=== PATIENT | female | born 1940 | race African-American/Black ===

== ENCOUNTER 2023-01-01 03:05 | Emergency (ER) | payer SELFPAY ==
[~2023-01-01] VITALS: Ht 177.8 cm; Wt 91.2 kg
[2023-01-01] MEDS ORDERED: TENECTEPLASE 50MG/VIAL IV ONE (03:45)
[2023-01-01 03:56] LABS: EOSINOPHILS % 1.7 % (0.0-5.0); HEMATOCRIT. 44.6 % (36.0-48.0); HEMOGLOBIN. 14.6 g/dL (12.0-16.0); LYMPHOCYTES % 23.2 % (20.0-50.0); MEAN CORPUSCULAR HEMOGLOBIN 27.6 pg (28.0-32.0); MEAN PLATELET VOLUME 8.7 fl (7.4-10.4); MONOCYTES % 8.5 % (2.0-8.0); NEUTROPHILS % 65.6 % (40.0-76.0); PLATELET 254 x1000/uL (130-400); RED BLOOD CELL COUNT 5.31 mill/uL (4.2-5.4); RED CELL DISTRIBUTION WIDTH 17.7 % (11.6-14.6)
[2023-01-01] MEDS ORDERED: TENECTEPLASE 50MG/VIAL IV NR (04:00)
[2023-01-01] MEDS ORDERED: LABETALOL 5MG/ML SYR 20 MG/4 ML SYRINGE IV ONE (04:00)
[2023-01-01 04:07] LABS: PROTHROMBIN TIME 10.5 sec (9.6-11.0)
[2023-01-01 04:09] LABS: CHLORIDE 107 mEq/L (98-107)
[2023-01-01 04:18] LABS: ETHANOL BLOOD < 10 mg/dL; LDL CHOLESTEROL 91 mg/dL (5-100)
[2023-01-01] MEDS ORDERED: IOHEXOL-350 100 ML BOTTLE ONE (06:02)
[2023-01-01] MEDS ORDERED: ONDANSETRON HCL 4MG/2ML INJ IV ONE (06:15)
[2023-01-01] MEDS ORDERED: NICARDIPINE 40 MG/200 ML PREMIX 200 ML IV NR (06:30)
[2023-01-01] MEDS ORDERED: NICARDIPINE 100 MG in SODIUM CHLORIDE 0.9% 60 ML IV ONE (06:30)
[2023-01-01 06:47] VITALS: BP 180/85
== END 2023-01-01 07:27 | disposition short-term general hospital (02) ==
LOC: ER 03:21
DX: I63.9 Cerebral infarction, unspecified (principal); I10 Essential (primary) hypertension; Z20.822 Contact with and (suspected) exposure to COVID-19
CPT/HCPCS: 36415; 70450; 70496; 70498; 71045; 80053; 80320; 82962; 83721; 84484; 85025; 85610; 87426; 93005; 96374; 96375; 99291; C9803; J2405; J2997; J3490; Q9967; Z7610; J7050; G0480